=== PATIENT | female | born 1955 | race African-American/Black ===

== ENCOUNTER 2017-03-16 14:46 | Emergency (ER) | payer MEDICAID, OTHER ==
[~2017-03-16] VITALS: Ht 175.3 cm; Wt 137.8 kg
[~2017-03-16 14:46] MED LIST: ALBU8.5H3 INH; AMLO10TA2 PO; BENA20TA2 PO; BENZONATE PO; CITA20TA5 PO; HYDR-3138 PO; UNK BP MED; [UNRECOGNIZED DRUG - OTHER] PO
[2017-03-16 15:44] LABS: HEMATOCRIT 37.8 % (34.6-47.8); HEMOGLOBIN 12.2 g/dL (11.7-16.4); WHITE BLOOD COUNT 9.3 x10^3/uL (3.4-10)
[2017-03-16 15:53] LABS: BLOOD UREA NITROGEN 14 mg/dL (7-18)
[2017-03-16 16:36] VITALS: BP 136/91
== END 2017-03-16 16:55 | disposition home or self-care (01) ==
LOC: ED 16:34
DX: R60.0 Localized edema (principal); J45.909 Unspecified asthma, uncomplicated; I10 Essential (primary) hypertension
CPT/HCPCS: 36415; 71010; 80048; 82040; 83880; 85025; 99285